=== PATIENT | female | born 1970 | race Hispanic/Latino ===

== ENCOUNTER 2023-02-15 09:52 | Day surgery (SDC) | payer OTHER ==
[2023-02-14 15:32] VITALS: BP 121/70
[2023-02-14 15:35] LABS: BASOPHILS % (AUTO) 0.7 % (0.0-5.0); EOSINOPHILS % (AUTO) 3.9 % (0.0-8.0); HEMATOCRIT 36.2 % (36-48); LYMPHOCYTES % (AUTO) 21.8 % (21.0-51.0); MEAN CORPUSCULAR HEMOGLOBIN 25.7 pg (27.0-33.0); MEAN CORPUSCULAR HGB CONC 31.8 g/dL (32.0-36.0); MEAN CORPUSCULAR VOLUME 80.8 fL (79-99); NEUTROPHILS % (AUTO) 68.2 % (40.0-77.0); PLATELET COUNT (AUTO) 367 K/uL (130-400); RED BLOOD CELL COUNT(AUTO) 4.48 MIL/uL (4.00-5.50); RED CELL DISTRIBUTION WIDTH 16.4 % (11.0-15.5); WHITE BLOOD COUNT (AUTO) 8.5 K/uL (4.8-10.8)
[2023-02-14 15:59] LABS: CREATININE 0.6 mg/dL (0.5-1.5); POTASSIUM 3.9 mmol/L (3.5-5.1)
[2023-02-15] VITALS (17 sets, daily range): BP systolic 105–129; BP diastolic 64–78
[~2023-02-15] VITALS: Ht 154.9 cm; Wt 81.3 kg
[~2023-02-15 09:52] MED LIST: HYDR25TA PO; LACTATED RINGERS 1000ML 1,000 ML IV SCH; LEVE500T19 PO; LISI20TA24 PO
[2023-02-15] MEDS: CEFAZOLIN SODIUM 2 GM VIAL IVPB SCH ×2 (10:08→12:01)
[2023-02-15] MEDS ORDERED: FAMOTIDINE 20MG VIAL IV ONE (11:27)
[2023-02-15] MEDS ORDERED: PROPOFOL 10 MG/ML 20ML VIAL IV ONE ×2 (11:43→12:08)
[2023-02-15] MEDS ORDERED: MIDAZOLAM HCL 1 MG/ML 2ML VIAL ONE ×2 (11:43→12:54)
[2023-02-15] MEDS ORDERED: FENTANYL CITRATE PF 50 MCG/1 ML 2ML VIAL ONE (11:44)
[2023-02-15] MEDS ORDERED: BUPIVACAINE/PF 0.25% 30ML VIAL IJ ONE (11:44)
[2023-02-15] MEDS ORDERED: ONDANSETRON 4MG INJ ONE ×2 (12:04→13:04)
[2023-02-15] MEDS ORDERED: ROCURONIUM 10MG/1ML SYR 10 MG/ML ML ONE (12:07)
[2023-02-15] MEDS ORDERED: NEOSTIGMINE 5MG/5ML SYR IV ONE (12:37)
[2023-02-15] MEDS ORDERED: GLYCOPYRROLATE 1 MG/5 ML SYRINGE ONE (12:37)
[2023-02-15] MEDS ORDERED: MEPERIDINE-PF 25 MG/ML SYG ONE ×2 (13:05→13:40)
== END 2023-02-15 14:45 | disposition home or self-care (01) ==
LOC: SUH 09:52 → DAH 09:52 → SUH 14:45
PROVIDERS: ATTEND Surgery
DX: L72.3 Sebaceous cyst (principal); Z20.822 Contact with and (suspected) exposure to COVID-19; L72.0 Epidermal cyst; K21.9 Gastro-esophageal reflux disease without esophagitis; Z90.49 Acquired absence of other specified parts of digestive tract; Z98.51 Tubal ligation status; Z83.3 Family history of diabetes mellitus
CPT/HCPCS: 80048; 84703; 85025; 87426; 36415; 11406; 88304; A4663; J7120 ×2; J3490 ×3; J3010; J2710; J2250 ×2; J2704 ×2; J2405 ×2; J2175 ×2; J0690; A4215; A4223; A4222; A4221; A6450; A4600